=== PATIENT | male | born 1950 | race Caucasian/White ===

== ENCOUNTER 2021-07-22 06:00 | Day surgery (SDC) | payer OTHER, SELFPAY ==
[~2021-07-22] VITALS: Ht 170.2 cm; Wt 75.3 kg
[2021-07-22] MEDS: MEPERIDINE 100 MG INJ. 100 MG/ML VIAL ONE ×2 (08:40→08:42)
[2021-07-22] MEDS: MIDAZOLAM HCL 5 MG/5 ML VIAL ONE ×3 (08:40→08:44)
[2021-07-22 16:38] VITALS: BP_SYST 96
== END 2021-07-22 10:05 | disposition home or self-care (01) ==
LOC: SDS 06:00 → SMU 06:00 → SDS 10:05
PROVIDERS: ATTEND Internal Medicine Gastroenterology
DX: Z12.11 Encounter for screening for malignant neoplasm of colon (principal); D12.3 Benign neoplasm of transverse colon; D12.4 Benign neoplasm of descending colon; D12.8 Benign neoplasm of rectum; K64.9 Unspecified hemorrhoids; K92.2 Gastrointestinal hemorrhage, unspecified; Z86.010 Personal history of colon polyps; Z79.899 Other long term (current) drug therapy; Z20.822 Contact with and (suspected) exposure to COVID-19
CPT/HCPCS: 36415; 45385; 82962; 87426; 88305; 99152; 99153; G0378; J2175; J2250; U0003